=== PATIENT | male | born 1995 | race American Indian/Alaskan Native ===

== ENCOUNTER 2017-02-14 12:26 | Emergency (ER) | payer MEDICAID ==
[2017-02-14 12:36] VITALS: BP 122/81
--- NOTE | 2017-02-14 12:46 | EDM.PDOC ---
ED HPI GENERAL MEDICAL PROBLEM - General Chief Complaint: Respiratory Problem Stated Complaint: [phone] Time Seen by Provider: 02/14/17 12:35 Source of Information: Reports: Patient History Limitations: Reports: No Limitations - History of Present Illness INITIAL COMMENTS - FREE TEXT/NARRATIVE: This 21 yo male patient reports to the ED with his father due to a 5 day history of increased shortness of breath. The patient reports he has been using his nebulizer, but the treatment only helps for about 3 hours. The patient has not been seen by his primary care facility. The patient reports he has been coughing with the shortness of breath. Onset: Gradual Onset Date: 02/09/17 Duration: Constant, Getting Worse Location: Reports: Chest Quality: Reports: Ache, Dull Severity: Moderate Improves with: Reports: Medication (albuterol treatment) Worsens with: Reports: None Associated Symptoms: Reports: Cough, Shortness of Breath Treatments GROUN[employer]KEE[employer]TER: Reports: Breathing Treatments - Related Data Allergies Allergy/AdvReac Type Severity Reaction Status Date / Time No Known Allergies Allergy Verified 02/14/17 12:40 Home Meds: Home Meds Albuterol [Proventil Neb Soln] 2.5 mg NEB Q6HRRT 02/14/17 [History] ED ROS GENERAL - Review of Systems Review Of Systems: ROS reveals no pertinent complaints other than HPI. ED EXAM, GENERAL - Physical Exam Exam: See Below Exam Limited By: No Limitations General Appearance: Alert, WD/WN, Mild Distress, Thin Eye Exam: Bilateral Eye: EOMI, Normal Inspection, PERRL Ears: Normal External Exam, Normal Canal, Hearing Grossly Normal, Normal TMs Nose: Normal Inspection, Normal Mucosa, No Blood Throat/Mouth: Normal Inspection, Normal Lips, Normal Teeth, Normal Gums, Normal Oropharynx, Normal Voice, No Airway Compromise Head: Atraumatic, Normocephalic Neck: Normal Inspection, Supple, Non-Tender, Full Range of Motion Respiratory/Chest: No Respiratory Distress, Lungs Clear, Normal Breath Sounds, No Accessory Muscle Use, Chest Non-Tender Cardiovascular: Normal Peripheral Pulses, Regular Rate, Rhythm, No Edema, No Gallop, No JVD, No Murmur, No Rub GI/Abdominal: Normal Bowel Sounds, Soft, Non-Tender, No Organomegaly, No Distention, No Abnormal Bruit, No Mass (Male) Exam: Deferred Rectal (Males) Exam: Deferred Back Exam: Normal Inspection, Full Range of Motion, NT Extremities: Normal Inspection, Normal Range of Motion, Non-Tender, Normal Capillary Refill, No Pedal Edema Neurological: Alert, Oriented, CN II-XII Intact, Normal Cognition, Normal Gait, Normal Reflexes, No Motor/Sensory Deficits Psychiatric: Normal Affect, Normal Mood Skin Exam: Warm, Dry, Intact, Normal Color, No Rash Lymphatic: No Adenopathy Course - Vital Signs Last Recorded V/S: Last Vital Signs Temp 36.7 C 02/14/17 12:35 Pulse 67 02/14/17 12:35 Resp 20 02/14/17 12:35 BP 122/81 02/14/17 12:35 Pulse Ox 100 02/14/17 12:35 - Orders/Labs/Meds Orders: Active Orders 24 hr Category Date Time Status COMPREHENSIVE METABOLIC PN,CMP [CHEM] Urgent Lab 02/14/17 12:41 Ordered Labs: Laboratory Tests 02/14/17 Range/Units 12:50 WBC 6.3 (5.0-10.0) 10^3/uL RBC 5.41 (4.6-6.2) 10^6/uL Hgb 16.6 (14.0-18.0) g/dL Hct 48.8 (40.0-54.0) % MCV 90.2 (80-100) fL MCH 30.7 (27.0-34.0) pg MCHC 34.0 (33.0-35.0) g/dL Plt Count 238 (150-450) 10^3/uL Neut % (Auto) 50.5 (42.2-75.2) % Lymph % (Auto) 21.8 (20.5-50.1) % [place] % (Auto) 11.4 H (2-8) % Eos % (Auto) 16.0 H (1.0-3.0) % Baso % (Auto) 0.3 (0.0-1.0) % Meds: Medications Discontinued Medications Generic Name Dose Route Start Last Admin Trade Name Freq PRN Reason Stop Dose Admin Prednisone 40 mg 02/14/17 13:08 Prednisone PO 02/14/17 13:09 ONETIME ONE Departure - Departure Time of Disposition: 13:13 Disposition: Home, Self-Care 01 Condition: Fair Clinical Impression: Exacerbation of asthma - Discharge Information Instructions: Asthma, Adult Forms: ED Department Discharge Care Plan Goals: The patient was advised of the examination, lab and x-ray results during the visit. The patient was given an oral dose of Prednisone (40 mg) while in the ED. The patient was discharged with a script for Prednisone (20 mg) #8 to take 2 by mouth daily and Albuterol Nebulizer Solution (2.5/3) # 1 box to take 1 treatment 4 times per day. The patient should follow-up with his primary care facility next week for continued evaluation and management. If the patient has any additional symptoms or concerns, the patient should visit his primary care facility or return to the emergency department. - My Orders Last 24 Hours: My Active Orders 02/14/17 12:41 COMPREHENSIVE METABOLIC PN,CMP [CHEM] Urgent - Assessment/Plan Last 24 Hours: My Active Orders 02/14/17 12:41 COMPREHENSIVE METABOLIC PN,CMP [CHEM] Urgent
--- NOTE | 2017-02-14 13:07 | CR ---
Clinical history: 21-year-old male emergency department with shortness of breath. Interpretation: Abnormal. Bronchial "cuffing" and accentuation central lung markings with generalized air trapping typical nabeel ctive airway disease. Asthmatic? Normal cardiac silhouette and pulmonary vascularity. No alveolar edema or dependent effusion. No lung mass or hilar lymphadenopathy. No focal lobar pneumonia, atelectasis or collapse. No pneumothorax. CONCLUSION: Reactive airway disease.
[2017-02-14] MEDS ORDERED: predniSONE 20 MG Tab PO ONE (13:08)
[2017-02-14 13:16] LABS: CHLORIDE,CL 102 mmol/L (101-111); SODIUM,NA 140 mmol/L (135-145)
== END 2017-02-14 13:23 | disposition home or self-care (01) ==
LOC: DL.ED 12:26
DX: J45.901 Unspecified asthma with (acute) exacerbation (principal)
CPT/HCPCS: 36415; 71020; 80053; 85025; 99285; A9270

== ENCOUNTER 2018-09-26 21:16 | Emergency (ER) | payer MEDICAID ==
[2018-09-26 22:01] VITALS: BP 133/83
[2018-09-26] MEDS ORDERED: methylPREDNISolone Sodium Succinate 125 MG/2 ML SDV IM ONE (22:11)
--- NOTE | 2018-09-26 22:17 | EDM.PDOC ---
ED HPI GENERAL MEDICAL PROBLEM - General Chief Complaint: Skin Complaint Stated Complaint: SKIN COMPLAINT Time Seen by Provider: 09/26/18 22:00 Source of Information: Reports: Patient History Limitations: Reports: No Limitations - History of Present Illness INITIAL COMMENTS - FREE TEXT/NARRATIVE: This 23 yo male patient reports to the ED with eczema that has been getting worse over the past month. The patient reports he has been using creams, but only uses them every 2-3 days. The patient has not had an appointment with his clinic provider recently. The patient is interested in seeing a transport analyst. Duration: Week(s):, Constant, Getting Worse Location: Reports: Generalized Quality: Reports: Other Severity: Moderate Improves with: Reports: None Worsens with: Reports: None Associated Symptoms: Reports: No Other Symptoms - Related Data Allergies Allergy/AdvReac Type Severity Reaction Status Date / Time No Known Allergies Allergy Verified 06/18/18 17:52 Home Meds: Home Meds Albuterol [Proventil Neb Soln] 2.5 mg NEB Q6HRRT 02/14/17 [History] Fluocinonide 1 each TP BID #60 cream..g. 06/18/18 [Rx] Sulfamethoxazole/Trimethoprim [Sulfamethoxazole-Tmp Ds Tablet] 1 tab PO BID #14 tablet 06/18/18 [Rx] Past Medical History - Past Health History Medical/Surgical History: Denies Medical/Surgical History HEENT History: Reports: None Cardiovascular History: Reports: None Respiratory History: Reports: Asthma Gastrointestinal History: Reports: None Genitourinary History: Reports: None Musculoskeletal History: Reports: None Neurological History: Reports: None Psychiatric History: Reports: None Endocrine/Metabolic History: Reports: None Hematologic History: Reports: None Immunologic History: Reports: None Oncologic (Cancer) History: Reports: None Dermatologic History: Reports: Eczema Social & Family History - Family History Family Medical History: Noncontributory - Tobacco Use Smoking Status *Q: Never Smoker - Caffeine Use Caffeine Use: Reports: None - Recreational Drug Use Recreational Drug Use: No - Living Situation & Occupation Living situation: Reports: with Family Occupation: Disabled ED ROS GENERAL - Review of Systems Review Of Systems: ROS reveals no pertinent complaints other than HPI. ED EXAM, SKIN/RASH Exam: See Below Exam Limited By: No Limitations General Appearance: Alert, WD/WN, Mild Distress Eye Exam: Bilateral Eye: EOMI, Normal Inspection, PERRL Ears: Normal External Exam, Normal Canal, Hearing Grossly Normal, Normal TMs Nose: Normal Inspection, Normal Mucosa, No Blood Throat/Mouth: Normal Inspection, Normal Lips, Normal Teeth, Normal Gums, Normal Oropharynx, Normal Voice, No Airway Compromise Head: Atraumatic, Normocephalic Neck: Normal Inspection, Supple, Non-Tender, Full Range of Motion Respiratory/Chest: No Respiratory Distress, Lungs Clear, Normal Breath Sounds, No Accessory Muscle Use, Chest Non-Tender Cardiovascular: Normal Peripheral Pulses, Regular Rate, Rhythm, No Edema, No Gallop, No JVD, No Murmur, No Rub GI/Abdominal: Normal Bowel Sounds, Soft, Non-Tender, No Organomegaly, No Distention, No Abnormal Bruit, No Mass (Male) Exam: Deferred Rectal (Males) Exam: Deferred Back Exam: Normal Inspection, Full Range of Motion, NT Extremities: Normal Inspection, Normal Range of Motion, Non-Tender, No Pedal Edema, Normal Capillary Refill Neurological: Alert, Oriented, CN II-XII Intact, Normal Cognition, Normal Gait, Normal Reflexes, No Motor/Sensory Deficits Psychiatric: Normal Affect, Normal Mood Skin: Rash (diffuse ) Location, Skin: Head, Face, Neck, Chest, Back, Upper Extremity, Right, Upper Extremity, Left, Lower Extremity, Right, Lower Extremity, Left Characteristics: Erythematous Lymphatic: No Adenopathy Course - Vital Signs Last Recorded V/S: Last Vital Signs Temp 37.4 C 09/26/18 22:00 Pulse 84 09/26/18 22:00 Resp 16 09/26/18 22:00 BP 133/83 09/26/18 22:00 Pulse Ox 97 09/26/18 22:00 - Orders/Labs/Meds Orders: Active Orders 24 hr Category Date Time Status methylPREDNISolone Sod Succ [Solu-MEDROL] Med 09/26/18 22:11 Once 125 mg IM ONETIME ONE Departure - Departure Time of Disposition: 22:15 Disposition: Home, Self-Care 01 Condition: Fair Clinical Impression: Eczema Qualifiers: Eczema type: unspecified Qualified Code(s): L30.9 - Dermatitis, unspecified - Discharge Information *PRESCRIPTION DRUG MONITORING PROGRAM REVIEWED*: Not Applicable *COPY OF PRESCRIPTION DRUG MONITORING REPORT IN PATIENT CARLEE: Not Applicable Instructions: Atopic Dermatitis Care Plan Goals: The patient was advised of the examination results during the visit. The patient was given an injection of SoluMedrol while in the ED. The patient should be seen by his primary care facility for continued evaluation and management. If the patient has any additional symptoms or concerns, the patient should visit his primary care facility or return to the emergency department. - My Orders Last 24 Hours: My Active Orders 09/26/18 22:11 methylPREDNISolone Sod Succ [Solu-MEDROL] 125 mg IM ONETIME ONE - Assessment/Plan Last 24 Hours: My Active Orders 09/26/18 22:11 methylPREDNISolone Sod Succ [Solu-MEDROL] 125 mg IM ONETIME ONE
== END 2018-09-26 22:35 | disposition home or self-care (01) ==
LOC: DL.ED 21:16
DX: L30.9 Dermatitis, unspecified (principal)
CPT/HCPCS: 96372; 99282; J2930

== ENCOUNTER 2019-05-25 09:39 | Emergency (ER) | payer MEDICAID ==
[2019-05-25 09:50] VITALS: BP 128/87; PULSE 65
--- NOTE | 2019-05-25 09:57 | EDM.PDOC ---
ED HPI GENERAL MEDICAL PROBLEM - General Chief Complaint: Back Pain or Injury Stated Complaint: MIDDLE BACK IN PAIN Time Seen by Provider: 05/25/19 09:57 Source of Information: Reports: Patient, Old Records, RN, RN Notes Reviewed History Limitations: Reports: No Limitations - History of Present Illness INITIAL COMMENTS - FREE TEXT/NARRATIVE: Pt presents to ER from home by POV with c/o middle back pain without any specific injury, lifting, or any known cause. Pt states he simply woke up with the pain. He sleeps on an air mattress in his apartment. He has not changed his sleeping habits, or other physical activities recently. Pt denies fever, chills , N/V/D/C, or any urinary symptoms. He describes the pain as "muscle spasms" all through the middle back, worse on the right side. Onset: Today Duration: Constant Location: Reports: Back Quality: Reports: Other (Spasms) Severity: Moderate Improves with: Reports: None Worsens with: Reports: Movement Associated Symptoms: Reports: No Other Symptoms Middle Back Pain Score (Numeric/FACES): 4 - Related Data Allergies Allergy/AdvReac Type Severity Reaction Status Date / Time No Known Allergies Allergy Verified 05/25/19 09:50 Home Meds: Home Meds Albuterol [Proventil Neb Soln] 2.5 mg NEB Q6HRRT 02/14/17 [History] Fluocinonide 1 each TP BID #60 cream..g. 06/18/18 [Rx] Past Medical History - Past Health History Medical/Surgical History: Denies Medical/Surgical History HEENT History: Reports: Impaired Vision Other HEENT History: wears glasses Cardiovascular History: Reports: None Respiratory History: Reports: Asthma Gastrointestinal History: Reports: None Genitourinary History: Reports: None Musculoskeletal History: Reports: None Neurological History: Reports: None Psychiatric History: Reports: None Endocrine/Metabolic History: Reports: None Hematologic History: Reports: None Immunologic History: Reports: None Oncologic (Cancer) History: Reports: None Dermatologic History: Reports: Eczema - Past Surgical History Head Surgeries/Procedures: Reports: None Social & Family History - Family History Family Medical History: Noncontributory - Tobacco Use Smoking Status *Q: Never Smoker Second Hand Smoke Exposure: No - Caffeine Use Caffeine Use: Reports: Soda - Recreational Drug Use Recreational Drug Use: No - Living Situation & Occupation Living situation: Reports: with Family Occupation: Disabled ED ROS GENERAL - Review of Systems Review Of Systems: ROS reveals no pertinent complaints other than HPI. ED EXAM, UPPER BACK/NECK PAIN - Physical Exam Exam: See Below Exam Limited By: No Limitations General Appearance: Alert, WD/WN, No Apparent Distress Head Exam: Atraumatic, Normocephalic Neck Exam: Non-Tender, Full Range of Motion, Normal Alignment, Normal Inspection Cardiovascular/Respiratory: Regular Rate, Rhythm, Normal Breath Sounds, No Respiratory Distress GI/Abdominal: Normal Bowel Sounds, Soft, Non-Tender, No Organomegaly, No Distention, No Abnormal Bruit, No Mass Back Exam: Full Range of Motion, CVA Tenderness (R), Muscle Spasm, Paraspinal Tenderness (Rt>L). No: Vertebral Tenderness Extremities: Normal Inspection, Normal Range of Motion, Non-Tender, No Pedal Edema, Normal Capillary Refill Neurologic: sausage grinder II-XII nml As Tested, No Motor/Sensory Deficits, Alert, Normal Mood/Affect, Oriented x 3 Psychiatric: Normal Affect, Normal Mood Skin Exam: Warm/Dry, Other (Chronic appearing generalized dry skin with patches consistent with eczema (moderately severe)) Course - Vital Signs Last Recorded V/S: Last Vital Signs Temp 98.2 F 05/25/19 09:46 Pulse 65 05/25/19 09:46 Resp 16 05/25/19 09:46 BP 128/87 05/25/19 09:46 Pulse Ox 99 05/25/19 09:46 - Orders/Labs/Meds Labs: Laboratory Tests 05/25/19 Range/Units 09:58 Urine Color Yellow (YELLOW) Urine Appearance Clear (CLEAR) Urine pH 5.5 (5.0-9.0) Ur Specific [place] >= 1.030 (1.005-1.030) Urine Protein Negative (NEGATIVE) Urine Glucose (UA) Negative (NEGATIVE) Urine Ketones 15 H (NEGATIVE) Urine Occult Blood Negative (NEGATIVE) Urine Nitrite Negative (NEGATIVE) Urine Bilirubin Negative (NEGATIVE) Urine Urobilinogen 1.0 (0.2-1.0) mg/dL Ur Leukocyte Esterase Negative (NEGATIVE) Departure - Departure Time of Disposition: 10:19 Disposition: Home, Self-Care 01 Condition: Good Clinical Impression: Spasm of thoracic back muscle - Discharge Information *PRESCRIPTION DRUG MONITORING PROGRAM REVIEWED*: No *COPY OF PRESCRIPTION DRUG MONITORING REPORT IN PATIENT CARLEE: No Instructions: Muscle Cramps and Spasms, [id number], Heat Therapy, Easy-to- Read Forms: ED Department Discharge Additional Instructions: Rx: Ibuprofen 600mg *Take with food. Rx: Cyclobenzaprine 10mg *May cause drowsiness. Follow up in clinic if not improving in 2 to 3 days.
== END 2019-05-25 10:27 | disposition home or self-care (01) ==
LOC: DL.ED 09:39
DX: M62.830 Muscle spasm of back (principal)
CPT/HCPCS: 81003; 99283

== ENCOUNTER 2019-11-25 19:36 | Emergency (ER) | payer MEDICAID ==
[2019-11-25 19:56] VITALS: BP 123/85; PULSE 79
--- NOTE | 2019-11-25 20:10 | EDM.PDOC ---
ED HPI GENERAL MEDICAL PROBLEM - General Chief Complaint: Back Pain or Injury Stated Complaint: LOWER BACK Time Seen by Provider: 11/25/19 20:00 Source of Information: Reports: Patient, RN Notes Reviewed History Limitations: Reports: No Limitations - History of Present Illness INITIAL COMMENTS - FREE TEXT/NARRATIVE: ED with c/o chronic low back pain since may with spasm, Woke today with pain. Has not taken anything for discomfort, No ice or heat. rate 3/10 intermittent, worse wihen lying in bed. No injury. No change in activity. No problems with urination. Middle Back Pain Score (Numeric/FACES): 3 - Related Data Allergies Allergy/AdvReac Type Severity Reaction Status Date / Time No Known Allergies Allergy Verified 05/25/19 09:50 Home Meds: Home Meds Albuterol [Proventil Neb Soln] 2.5 mg NEB Q6HRRT 02/14/17 [History] Fluocinonide 1 each TP BID #60 cream..g. 06/18/18 [Rx] Past Medical History - Past Health History Medical/Surgical History: Denies Medical/Surgical History HEENT History: Reports: Impaired Vision Other HEENT History: wears glasses Cardiovascular History: Reports: None Respiratory History: Reports: Asthma Gastrointestinal History: Reports: None Genitourinary History: Reports: None Musculoskeletal History: Reports: Back Pain, Chronic Neurological History: Reports: None Psychiatric History: Reports: None Endocrine/Metabolic History: Reports: None Hematologic History: Reports: None Immunologic History: Reports: None Oncologic (Cancer) History: Reports: None Dermatologic History: Reports: Eczema - Past Surgical History Head Surgeries/Procedures: Reports: None Social & Family History - Family History Family Medical History: Noncontributory - Tobacco Use Smoking Status *Q: Unknown Ever Smoked - Caffeine Use Caffeine Use: Reports: Soda - Recreational Drug Use Recreational Drug Use: No - Living Situation & Occupation Living situation: Reports: with Family Occupation: Disabled ED ROS GENERAL - Review of Systems Review Of Systems: Comprehensive ROS is negative, except as noted in HPI. ED EXAM,LOWER BACK PAIN/INJURY - Physical Exam Exam: See Below Exam Limited By: No Limitations General Appearance: Alert, No Apparent Distress Eye Exam: Bilateral Eye: EOMI Ears: Normal External Exam Throat/Mouth: Normal Inspection Head: Atraumatic, Normocephalic Neck: Normal Inspection Respiratory/Chest: No Respiratory Distress, Lungs Clear, Normal Breath Sounds Cardiovascular: Normal Peripheral Pulses, Regular Rate, Rhythm GI/Abdominal: Soft Back Exam: Full Range of Motion. No: Muscle Spasm, Paraspinal Tenderness, Vertebral Tenderness Extremities: Normal Inspection, Normal Range of Motion Neurological: Alert, Normal Gait, Oriented x 3 Psychiatric: Anxious Skin Exam: Warm, Dry, Intact Course - Vital Signs Last Recorded V/S: Last Vital Signs Temp 99.0 F 11/25/19 19:52 Pulse 79 11/25/19 19:52 Resp 16 11/25/19 19:52 BP 123/85 11/25/19 19:52 Pulse Ox 96 11/25/19 19:52 - Orders/Labs/Meds Orders: Active Orders 24 hr Category Date Time Status DRUG SCREEN URINE BIORAD [URCHEM] Stat Lab 11/25/19 19:56 Received UA RFX MINNIE AND CULT IF INDIC [URIN] Urgent Lab 11/25/19 19:56 Received Departure - Departure Time of Disposition: 20:15 Disposition: Home, Self-Care 01 Clinical Impression: Muscle spasm of back - Discharge Information *PRESCRIPTION DRUG MONITORING PROGRAM REVIEWED*: No *COPY OF PRESCRIPTION DRUG MONITORING REPORT IN PATIENT CARLEE: No Instructions: Muscle Cramps and Spasms, [id number] Additional Instructions: alternate tylenol 650mg and ibuprofen 600mg every 4 hours as needed for discomfort warm pack to back as needed follow up in clinic on Friday if still symptoms Sepsis Event Note - Evaluation Sepsis Screening Result: No Definite Risk - Focused Exam Vital Signs: Vital Signs Temp Pulse Resp BP Pulse Ox 11/25/19 19:52 99.0 F 79 16 123/85 96 Date Exam was Performed: 11/25/19 Time Exam was Performed: 20:03 - My Orders Last 24 Hours: My Active Orders 11/25/19 19:56 DRUG SCREEN URINE BIORAD [URCHEM] Stat UA RFX MINNIE AND CULT IF INDIC [URIN] Urgent - Assessment/Plan Last 24 Hours: My Active Orders 11/25/19 19:56 DRUG SCREEN URINE BIORAD [URCHEM] Stat UA RFX MINNIE AND CULT IF INDIC [URIN] Urgent
== END 2019-11-25 20:17 | disposition home or self-care (01) ==
LOC: DL.ED 19:36
DX: M62.830 Muscle spasm of back (principal)
CPT/HCPCS: 80305-QW; 81001; 99283

== ENCOUNTER 2020-01-20 16:37 | Emergency (ER) | payer MEDICAID | END 2020-01-20 18:37 | LOC: DL.ED 16:37 | DX: Z53.21 Procedure and treatment not carried out due to patient leaving prior to being seen by health care provider (principal) ==

== ENCOUNTER 2020-01-23 17:55 | Emergency (ER) | payer MEDICAID ==
--- NOTE | 2020-01-23 18:01 | EDM.PDOC ---
ED HPI GENERAL MEDICAL PROBLEM - General Chief Complaint: ENT Problem Stated Complaint: RIGHT EAR TROUBLE, PLUGGED UP Time Seen by Provider: 01/23/20 18:01 Source of Information: Reports: Patient, Old Records, RN, RN Notes Reviewed History Limitations: Reports: No Limitations - History of Present Illness INITIAL COMMENTS - FREE TEXT/NARRATIVE: Pt to ER stating he is having trouble with right ear with muffled hearing and a plugged sensation. Has been having trouble with this ear for several months. States that he has seen a provider for it, but is unable to say which provider, when and what they diagnosed him with or what treatments they tried. There does appear to be some dry skin around the external ear canal, which is consistent with the patient's stated history of eczema. He is unable to articulate whether or not there has been drainage, but states that there is no pain. Onset: Gradual Duration: Chronic, Constant Location: Reports: Other (ear) Quality: Reports: Pressure, Other (Denies pain) Severity: Moderate Improves with: Reports: None Worsens with: Reports: None Associated Symptoms: Reports: No Other Symptoms - Related Data Allergies Allergy/AdvReac Type Severity Reaction Status Date / Time No Known Allergies Allergy Verified 01/23/20 18:04 Home Meds: Home Meds Albuterol [Proventil Neb Soln] 2.5 mg NEB Q6HRRT PRN 02/14/17 [History] Fluocinonide 1 each TP BID PRN 01/20/20 [History] Past Medical History - Past Health History Medical/Surgical History: Denies Medical/Surgical History HEENT History: Reports: Impaired Vision, Other (See Below) (Cerumen impaction) Other HEENT History: wears glasses Cardiovascular History: Reports: None Respiratory History: Reports: Asthma Gastrointestinal History: Reports: None Genitourinary History: Reports: None Musculoskeletal History: Reports: Back Pain, Chronic Neurological History: Reports: None Psychiatric History: Reports: None Endocrine/Metabolic History: Reports: None Hematologic History: Reports: None Immunologic History: Reports: None Oncologic (Cancer) History: Reports: None Dermatologic History: Reports: Eczema - Infectious Disease History Infectious Disease History: Reports: None - Past Surgical History Head Surgeries/Procedures: Reports: None Social & Family History - Family History Family Medical History: Noncontributory - Caffeine Use Caffeine Use: Reports: Soda - Living Situation & Occupation Living situation: Reports: with Family Occupation: Disabled ED ROS ENT - Review of Systems Review Of Systems: Comprehensive ROS is negative, except as noted in HPI. ED EXAM, ENT - Physical Exam Exam: See Below Exam Limited By: No Limitations General Appearance: Alert, WD/WN, No Apparent Distress Eye Exam: Bilateral Eye: Normal Inspection Ears: TM Obscured by Cerumen (Right), Cerumen Impaction (Right), Other (Left TM normal) Nose: Normal Inspection, Normal Mucousa, No Blood Mouth/Throat: Normal Inspection, Normal Oropharynx Head: Atraumatic, Normocephalic Neck: Normal Inspection, Supple, Non-Tender, Full Range of Motion. No: Lymphadenopathy (L), Lymphadenopathy (R) Neurological: Alert, Oriented, CN II-XII Intact, Normal Gait, No Motor/Sensory Deficits Psychiatric: Normal Mood Skin: Warm, Dry, Intact, Rash (chronic eczema) Course - Vital Signs Last Recorded V/S: Last Vital Signs Temp 98.2 F 01/23/20 18:05 Pulse 84 01/23/20 18:05 Resp 16 01/23/20 18:05 BP 127/89 01/23/20 18:05 Pulse Ox 97 01/23/20 18:05 - Orders/Labs/Meds Orders: Active Orders 24 hr Category Date Time Status Ear Irrigation [RC] ASDIRECTED Care 01/23/20 18:15 Ordered Departure - Departure Time of Disposition: 18:25 Disposition: Home, Self-Care 01 Condition: Good Clinical Impression: Impacted cerumen, right ear - Discharge Information *PRESCRIPTION DRUG MONITORING PROGRAM REVIEWED*: Not Applicable *COPY OF PRESCRIPTION DRUG MONITORING REPORT IN PATIENT CARLEE: Not Applicable Instructions: Earwax Buildup, Adult Forms: ED Department Discharge Additional Instructions: Do not use Q-tips in your ears. Follow up in clinic in 3 to 4 weeks for ear recheck. Sepsis Event Note - Focused Exam Vital Signs: Vital Signs Temp Pulse Resp BP Pulse Ox 01/23/20 18:05 98.2 F 84 16 127/89 97 Date Exam was Performed: 01/23/20 Time Exam was Performed: 18:16 - My Orders Last 24 Hours: My Active Orders 01/23/20 18:15 Ear Irrigation [RC] ASDIRECTED - Assessment/Plan Last 24 Hours: My Active Orders 01/23/20 18:15 Ear Irrigation [RC] ASDIRECTED
[2020-01-23 18:08] VITALS: BP 127/89; PULSE 84
== END 2020-01-23 18:36 | disposition home or self-care (01) ==
LOC: DL.ED 17:55
DX: H61.21 Impacted cerumen, right ear (principal); L30.9 Dermatitis, unspecified; J45.909 Unspecified asthma, uncomplicated
CPT/HCPCS: 99282

== ENCOUNTER 2020-04-11 06:59 | Emergency (ER) | payer MEDICAID ==
[2020-04-11] MEDS ORDERED: Ibuprofen 600 MG Tab PO ONE (07:13)
[2020-04-11 07:14] VITALS: BP 116/77; PULSE 57
--- NOTE | 2020-04-11 07:20 | EDM.PDOC ---
ED HPI GENERAL MEDICAL PROBLEM - General Chief Complaint: Back Pain or Injury Stated Complaint: [id number] BACK PAIN Time Seen by Provider: 04/11/20 07:10 Source of Information: Reports: Patient History Limitations: Reports: No Limitations - History of Present Illness INITIAL COMMENTS - FREE TEXT/NARRATIVE: This 25 yo male patient reports to the ED with back pain. The patient reports his back pain has been intermittent for the past 4 months. The patient reports increased pain over the past 2 days. The patient reports the took Tylenol yesterday and may have taken ibuprofen as well. The patient was seen here with similar symptoms in November, advised to take Tylenol and ibuprofen and follow-up with his primary care facility. The patient reports he has not seen his primary care facility for follow-up. The patient denies any urinary problems or pain shooting down to his legs. The patient denies any recent trauma or lifting/moving heavy objects. 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, NSAIDS Lower Back Pain Score (Numeric/FACES): 5 - Related Data Allergies Allergy/AdvReac Type Severity Reaction Status Date / Time No Known Allergies Allergy Verified 01/23/20 18:04 Past Medical History - Past Health History Medical/Surgical History: Denies Medical/Surgical History HEENT History: Reports: Impaired Vision, Other (See Below) (Cerumen impaction) Other HEENT History: wears glasses Cardiovascular History: Reports: None Respiratory History: Reports: Asthma Gastrointestinal History: Reports: None Genitourinary History: Reports: None Musculoskeletal History: Reports: Back Pain, Chronic Neurological History: Reports: None Psychiatric History: Reports: None Endocrine/Metabolic History: Reports: None Hematologic History: Reports: None Immunologic History: Reports: None Oncologic (Cancer) History: Reports: None Dermatologic History: Reports: Eczema - Infectious Disease History Infectious Disease History: Reports: None - Past Surgical History Head Surgeries/Procedures: Reports: None Social & Family History - Family History Family Medical History: Noncontributory - Caffeine Use Caffeine Use: Reports: Soda - Living Situation & Occupation Living situation: Reports: with Family Occupation: Disabled ED ROS GENERAL - Review of Systems Review Of Systems: Comprehensive ROS is negative, except as noted in HPI. ED EXAM,LOWER BACK PAIN/INJURY - Physical Exam Exam: See Below Exam Limited By: No Limitations General Appearance: Alert, WD/WN, Mild Distress Eye Exam: Bilateral Eye: EOMI, Normal Inspection, PERRL Ears: Normal External Exam, Normal Canal, Hearing Grossly Normal, Normal TMs Nose: Normal Inspection, Normal Mucosa, No Blood Throat/Mouth: Normal Inspection, Normal Lips, Normal Teeth, Normal Gums, Normal Oropharynx, Normal Voice, No Airway Compromise Head: Atraumatic, Normocephalic Neck: Normal Inspection, Supple, Non-Tender, Full Range of Motion Respiratory/Chest: No Respiratory Distress, Lungs Clear, Normal Breath Sounds, No Accessory Muscle Use, Chest Non-Tender Cardiovascular: Normal Peripheral Pulses, Regular Rate, Rhythm, No Edema, No Gallop, No JVD, No Murmur, No Rub GI/Abdominal: Normal Bowel Sounds, Soft, Non-Tender, No Organomegaly, No Dist ention, No Abnormal Bruit, No Mass (Male) Exam: Deferred Rectal (Males) Exam: Deferred Back Exam: Paraspinal Tenderness Extremities: Normal Inspection, Normal Range of Motion, Non-Tender, No Pedal Edema, Normal Capillary Refill Neurological: Alert, Normal Mood/Affect, Normal Dorsiflexion, CN II-XII Intact, Normal Plantar Flexion, Normal Gait, Normal Reflexes, No Motor/Sensory Deficits, Oriented x 3 Psychiatric: Normal Affect, Normal Mood Skin Exam: Warm, Dry, Intact, Normal Color, No Rash Lymphatic: No Adenopathy Course - Vital Signs Last Recorded V/S: Last Vital Signs Temp 36.7 C 04/11/20 07:10 Pulse 57 L 04/11/20 07:10 Resp 18 04/11/20 07:10 BP 116/77 04/11/20 07:10 Pulse Ox 99 04/11/20 07:10 - Orders/Labs/Meds Orders: Active Orders 24 hr Category Date Time Status Ibuprofen [Motrin] Med 04/11/20 07:13 Once 600 mg PO ONETIME ONE Orphenadrine [Norflex] Med 04/11/20 07:13 Once 60 mg IM ONETIME ONE Medication Orders Ibuprofen (Motrin) 600 mg PO ONETIME ONE Stop: 04/11/20 07:14 Orphenadrine Citrate (Norflex) 60 mg IM ONETIME ONE Stop: 04/11/20 07:14 Meds: Medications Generic Name Dose Route Start Last Admin Trade Name Sara PRN Reason Stop Dose Admin Ibuprofen 600 mg 04/11/20 07:13 Motrin PO 04/11/20 07:14 ONETIME ONE Orphenadrine Citrate 60 mg 04/11/20 07:13 Norflex IM 04/11/20 07:14 ONETIME ONE Departure - Departure Time of Disposition: 07:20 Disposition: Home, Self-Care 01 Condition: Fair Clinical Impression: Muscle spasm of back - Discharge Information *PRESCRIPTION DRUG MONITORING PROGRAM REVIEWED*: Not Applicable *COPY OF PRESCRIPTION DRUG MONITORING REPORT IN PATIENT CARLEE: Not Applicable Instructions: Chronic Back Pain, [id number], Muscle Cramps and Spasms, [id number] Care Plan Goals: The patient was advised of the examination results during the visit. The patient was given an oral dose of ibuprofen and an injection of Norflex while in the ED. The patient was discharged with a script for Flexeril (5 mg) #20 to take 1 by mouth every 6 hours as needed for muscle spasms. The patient was encouraged to take Tylenol and ibuprofen as directed. The patient should follow-up with his primary care facility for continued care and further management. If the patient has any additional symptoms or concerns, the patient should either return to the emergency department or visit his primary care facility. Sepsis Event Note (ED) - Evaluation Sepsis Screening Result: No Definite Risk - Focused Exam Vital Signs: Vital Signs Temp Pulse Resp BP Pulse Ox 04/11/20 07:10 36.7 C 57 L 18 116/77 99 - My Orders Last 24 Hours: My Active Orders 04/11/20 07:13 Ibuprofen [Motrin] 600 mg PO ONETIME ONE Orphenadrine [Norflex] 60 mg IM ONETIME ONE - Assessment/Plan Last 24 Hours: My Active Orders 04/11/20 07:13 Ibuprofen [Motrin] 600 mg PO ONETIME ONE Orphenadrine [Norflex] 60 mg IM ONETIME ONE
== END 2020-04-11 07:40 | disposition home or self-care (01) ==
LOC: DL.ED 06:59
DX: M62.830 Muscle spasm of back (principal); J45.909 Unspecified asthma, uncomplicated
CPT/HCPCS: 96372; 99283; A9270; J2360

== ENCOUNTER 2021-03-12 22:18 | Emergency (ER) | payer MEDICAID | END 2021-03-13 02:37 | disposition left against medical advice (07) | LOC: DL.ED 22:18 | DX: J45.909 Unspecified asthma, uncomplicated (principal); Z53.21 Procedure and treatment not carried out due to patient leaving prior to being seen by health care provider ==

== ENCOUNTER 2021-03-13 07:16 | Emergency (ER) | payer MEDICAID ==
[2021-03-13 07:32] VITALS: BP 121/88; PULSE 107
[2021-03-13] MEDS ORDERED: methylPREDNISolone Sodium Succinate 125 MG/2 ML SDV IVPUSH ONE (07:42)
[2021-03-13] MEDS ORDERED: Albuterol/Ipratropium 3.0-0.5 MG/3 ML Neb Soln NEB ONE (07:42)
--- NOTE | 2021-03-13 07:45 | EDM.PDOC ---
ED HPI GENERAL MEDICAL PROBLEM - General Chief Complaint: Respiratory Problem Stated Complaint: TROUBLE BREATHING [id number] Time Seen by Provider: 03/13/21 07:42 Source of Information: Reports: Patient, RN, RN Notes Reviewed History Limitations: Reports: No Limitations - History of Present Illness INITIAL COMMENTS - FREE TEXT/NARRATIVE: Cesar is a 26 y/o male with a history of asthma who presents to the ED via personal vehicle with complaints of shortness of breath. The patient reports his symptoms began approximately one week ago and have progressively worsened in that time. He has not taken his previously prescribed inhalers as he has not been able to find them. He denies fever, shaking chills, vision changes, chest pain, palpitations, nausea, vomiting, or diarrhea. He denies tobacco, alcohol, or recreational drugs. - Related Data Allergies Allergy/AdvReac Type Severity Reaction Status Date / Time No Known Allergies Allergy Verified 03/13/21 07:32 Past Medical History - Past Health History Medical/Surgical History: Denies Medical/Surgical History HEENT History: Reports: Impaired Vision, Other (See Below) Other HEENT History: wears glasses Cardiovascular History: Reports: None Respiratory History: Reports: Asthma Gastrointestinal History: Reports: None Genitourinary History: Reports: None Musculoskeletal History: Reports: Back Pain, Chronic Neurological History: Reports: None Psychiatric History: Reports: None Endocrine/Metabolic History: Reports: None Hematologic History: Reports: None Immunologic History: Reports: None Oncologic (Cancer) History: Reports: None Dermatologic History: Reports: Eczema - Infectious Disease History Infectious Disease History: Reports: None - Past Surgical History Head Surgeries/Procedures: Reports: None Social & Family History - Family History Family Medical History: No Pertinent Family History - Tobacco Use Tobacco Use Status *Q: Current Status Unknown - Caffeine Use Caffeine Use: Reports: Soda - Recreational Drug Use Recreational Drug Use: No - Living Situation & Occupation Living situation: Reports: with Family Occupation: Disabled ED ROS GENERAL - Review of Systems Review Of Systems: Comprehensive ROS is negative, except as noted in HPI. ED EXAM, GENERAL - Physical Exam Exam: See Below Exam Limited By: Uncooperative General Appearance: Alert, No Apparent Distress Eye Exam: Bilateral Eye: EOMI, PERRL (4mm), Other (Scleral icterus) Ears: Normal Canal, Hearing Grossly Normal. No: Normal External Exam (Eczema patches to right auricle) Ear Exam: Right Ear: Auricle Normal (Eczema patches to right auricle), Bilateral Ear: Canal Normal Nose: Normal Inspection, Normal Mucosa, No Blood Throat/Mouth: Other (Patient refuses to allow director underwriter sales to examine mouth and throat as he "...hasn't brushed his teeth") Head: Atraumatic, Normocephalic Neck: Normal Inspection, Supple, Non-Tender, Full Range of Motion. No: Lymphadenopathy (L), Lymphadenopathy (R) Respiratory/Chest: No Respiratory Distress, No Accessory Muscle Use, Chest Non-Tender, Wheezing (Inspiratory and expiratory), Prolonged Expiration Cardiovascular: Normal Peripheral Pulses, Regular Rate, Rhythm, No Edema, No Gallop, No JVD, No Murmur, No Rub, Tachycardia Peripheral Pulses: 2+: Radial (L), Radial (R) GI/Abdominal: Normal Bowel Sounds, Soft, Non-Tender, No Distention, No Abnormal Bruit, No Mass, Pelvis Stable (Male) Exam: Deferred Rectal (Males) Exam: Deferred Back Exam: Normal Inspection, Full Range of Motion Extremities: Normal Inspection, Normal Range of Motion, Non-Tender, Normal Capillary Refill, No Pedal Edema Neurological: Alert, Oriented, Normal Gait, No Motor/Sensory Deficits, Slow to Respond Psychiatric: Anxious Skin Exam: Warm, Dry, Intact, Normal Color, No Rash. No: Cyanosis, Jaundice, Mottled, Pallor Course - Vital Signs Last Recorded V/S: Last Vital Signs Temp 98.9 F 03/13/21 07:29 Pulse 107 H 03/13/21 07:29 Resp 14 03/13/21 07:29 BP 121/88 03/13/21 07:29 Pulse Ox 96 03/13/21 07:29 - Orders/Labs/Meds Labs: Laboratory Tests 03/13/21 03/13/21 03/13/21 Range/Units 07:44 07:44 07:56 WBC 14.2 H (5.0-10.0) 10^3/uL RBC 5.55 (4.6-6.2) 10^6/uL Hgb 16.4 (14.0-18.0) g/dL Hct 49.6 (40.0-54.0) % MCV 89.4 (80-100) fL MCH 29.5 (27.0-34.0) pg MCHC 33.1 (33.0-35.0) g/dL Plt Count 399 D (150-450) 10^3/uL Neut % (Auto) 71.2 (42.2-75.2) % Lymph % (Auto) 9.7 L (20.5-50.1) % Robertson % (Auto) 7.8 (2-8) % Eos % (Auto) 11.2 H (1.0-3.0) % Baso % (Auto) 0.1 (0.0-1.0) % Sodium (136-145) mmol/L Potassium (3.5-5.1) mmol/L Chloride (98-107) mmol/L Carbon Dioxide (21-32) mmol/L Anion Gap (7-13) mEq/L BUN (7-18) mg/dL Creatinine (0.70-1.30) mg/dL Est Cr Clr Drug Dosing mL/min Estimated GFR (MDRD) BUN/Creatinine Ratio (No establ ref range) Glucose (70-99) mg/dL Calcium (8.5-10.1) mg/dL Total Bilirubin (0.2-1.0) mg/dL AST (15-37) U/L ALT (16-63) U/L Alkaline Phosphatase (46-116) U/L Troponin I High Sens (<=76) pg/mL C-Reactive Protein (0.0-0.9) mg/dL Total Protein (6.4-8.2) g/dL Albumin (3.4-5.0) g/dL Globulin Albumin/Globulin Ratio Urine Color Yellow (YELLOW) Urine Appearance Clear (CLEAR) Urine pH 5.5 (5.0-9.0) Ur Specific Prather >= 1.030 (1.005-1.030) Urine Protein Negative (NEGATIVE) Urine Glucose (UA) Negative (NEGATIVE) Urine Ketones Negative (NEGATIVE) Urine Occult Blood Trace-intact H (NEGATIVE) Urine Nitrite Negative (NEGATIVE) Urine Bilirubin Negative (NEGATIVE) Urine Urobilinogen 0.2 (0.2-1.0) mg/dL Ur Leukocyte Esterase Negative (NEGATIVE) Urine RBC 0-5 /HPF Urine WBC 0-5 (0-5/HPF) /HPF Ur Epithelial Cells Rare (NOT SEEN) /HPF Urine Bacteria Rare (0-FEW/HPF) /HPF Urine Mucus Many H (NOT SEEN) /LPF Urine Opiates Screen Negative (NEGATIVE) Ur Oxycodone Screen Negative (NEGATIVE) Urine Methadone Screen Negative (NEGATIVE) Ur Barbiturates Screen Negative (NEGATIVE) U Tricyclic Antidepress Negative (NEGATIVE) Ur Phencyclidine Scrn Negative (NEGATIVE) Ur Amphetamine Screen Negative (NEGATIVE) U Methamphetamines Scrn Negative (NEGATIVE) Urine MDMA Screen Negative (NEGATIVE) U Benzodiazepines Scrn Negative (NEGATIVE) Urine Cocaine Screen Negative (NEGATIVE) U Marijuana (THC) Screen Negative (NEGATIVE) Ethyl Alcohol (0) mg/dL 03/13/21 Range/Units 07:56 WBC (5.0-10.0) 10^3/uL RBC (4.6-6.2) 10^6/uL Hgb (14.0-18.0) g/dL Hct (40.0-54.0) % MCV (80-100) fL MCH (27.0-34.0) pg MCHC (33.0-35.0) g/dL Plt Count (150-450) 10^3/uL Neut % (Auto) (42.2-75.2) % Lymph % (Auto) (20.5-50.1) % Robertson % (Auto) (2-8) % Eos % (Auto) (1.0-3.0) % Baso % (Auto) (0.0-1.0) % Sodium 146 H (136-145) mmol/L Potassium 3.8 (3.5-5.1) mmol/L Chloride 106 (98-107) mmol/L Carbon Dioxide 28 (21-32) mmol/L Anion Gap 15.8 H (7-13) mEq/L BUN 12 (7-18) mg/dL Creatinine 0.85 (0.70-1.30) mg/dL Est Cr Clr Drug Dosing 108.34 mL/min Estimated GFR (MDRD) > 60 BUN/Creatinine Ratio 14.1 (No establ ref range) Glucose 106 H (70-99) mg/dL Calcium 8.5 (8.5-10.1) mg/dL Total Bilirubin 1.2 H (0.2-1.0) mg/dL AST 17 (15-37) U/L ALT 19 (16-63) U/L Alkaline Phosphatase 103 (46-116) U/L Troponin I High Sens < 4 (<=76) pg/mL C-Reactive Protein 0.8 (0.0-0.9) mg/dL Total Protein 8.2 (6.4-8.2) g/dL Albumin 3.9 (3.4-5.0) g/dL Globulin 4.3 Albumin/Globulin Ratio 0.9 Urine Color (YELLOW) Urine Appearance (CLEAR) Urine pH (5.0-9.0) Ur Specific Prather (1.005-1.030) Urine Protein (NEGATIVE) Urine Glucose (UA) (NEGATIVE) Urine Ketones (NEGATIVE) Urine Occult Blood (NEGATIVE) Urine Nitrite (NEGATIVE) Urine Bilirubin (NEGATIVE) Urine Urobilinogen (0.2-1.0) mg/dL Ur Leukocyte Esterase (NEGATIVE) Urine RBC /HPF Urine WBC (0-5/HPF) /HPF Ur Epithelial Cells (NOT SEEN) /HPF Urine Bacteria (0-FEW/HPF) /HPF Urine Mucus (NOT SEEN) /LPF Urine Opiates Screen (NEGATIVE) Ur Oxycodone Screen (NEGATIVE) Urine Methadone Screen (NEGATIVE) Ur Barbiturates Screen (NEGATIVE) U Tricyclic Antidepress (NEGATIVE) Ur Phencyclidine Scrn (NEGATIVE) Ur Amphetamine Screen (NEGATIVE) U Methamphetamines Scrn (NEGATIVE) Urine MDMA Screen (NEGATIVE) U Benzodiazepines Scrn (NEGATIVE) Urine Cocaine Screen (NEGATIVE) U Marijuana (THC) Screen (NEGATIVE) Ethyl Alcohol < 3 (0) mg/dL Meds: Medications Discontinued Medications Generic Name Dose Route Start Last Admin Trade Name Freq PRN Reason Stop Dose Admin Albuterol/Ipratropium 3 ml 03/13/21 07:42 03/13/21 08:18 Albuterol/Ipratropium 3.0-0.5 Mg/3 Ml Neb Soln NEB 03/13/21 07:43 3 ml ONETIME ONE Administration Methylprednisolone Sodium Succinate 125 mg 03/13/21 07:42 03/13/21 09:05 Methylprednisolone Sodium Succinate 125 Mg/2 Ml Sdv IVPUSH 03/13/21 07:43 Not Given ONETIME ONE Methylprednisolone Sodium Succinate 125 mg 03/13/21 07:56 03/13/21 09:05 Methylprednisolone Sodium Succinate 125 Mg/2 Ml Sdv IM 03/13/21 07:57 125 mg ONETIME ONE Administration - Radiology Interpretation Free Text/Narrative:: [facility] [place] [facility] Final Radiology Report Call: [phone] assistance Online chat: [email or web address] Name: CESAR ROSARIO Age: 26Years M Date: 03/13/2021 SSN: -- : [id number] Study: CR CHEST 1V FRONTAL Requesting Physician: Shannan Junior Images: 1 Addl Studies: Provided Clinical History: Shortness of breath; Hx of asthma Contrast: Contrast Medium: Contrast Amount: Contrast Method: CONFIDENTIALITY STATEMENT This report is intended only for use by the referring physician, and only in accordance with law. If you received this in error, call [phone]. Page 1 of 1 PROCEDURE INFORMATION: Exam: XR Chest Exam date and time: 03/13/2021 8:26 AM Age: 26 years old Clinical indication: Shortness of breath; Additional info: Shortness of breath; HX of asthma TECHNIQUE: Imaging protocol: XR of the chest. Views: 1 view. COMPARISON: CR Chest 2V 02/14/2017 12:52 PM FINDINGS: Lungs: There is minor scattered streaky atelectasis. The lungs are otherwise clear. Pleural spaces: Unremarkable. No pleural effusion. No pneumothorax. Heart/Mediastinum: The cardiomediastinal silhouette is fairly stable in appearance. Bones/joints: Unremarkable. IMPRESSION: No evidence for acute pulmonary disease. Thank you for allowing us to participate in the care of your patient. Dictated and Authenticated by: Solo Hill MD 03/13/2021 10:27 AM Central Time ([place] & [place]) - Re-Assessments/Exams Free Text/Narrative Re-Assessment/Exam: 03/13/21 Findings of examination, lab work, and imaging reviewed with patient. Will treat asthma exacerbation with pulmonary steroid burst and albuterol MDI. Discussed supportive cares for asthma. Patient instructed to follow up with primary care provider in 2-3 days. Red flag signs and symptoms which would warrant reevaluation reviewed. Patient verbalized understanding and agreement with the plan of care. Departure - Departure Time of Disposition: 10:41 Disposition: Home, Self-Care 01 Condition: Good Clinical Impression: Acute asthma - Discharge Information *PRESCRIPTION DRUG MONITORING PROGRAM REVIEWED*: Not Applicable *COPY OF PRESCRIPTION DRUG MONITORING REPORT IN PATIENT CARLEE: Not Applicable Instructions: Asthma Attack Prevention, Adult Forms: ED Department Discharge Additional Instructions: Rx: prednisone Rx: albuterol MDI 1.) Follow up with your primary care provider in 2-3 days regarding today's visit. 2.) Return to the emergency department should you require more frequent doses of albuterol than has been prescribed. 3.) Follow up with primary care provider, or return to the emergency department, with fever, shaking chills, chest pain, palpitations, or persistent shortness of breath. Sepsis Event Note (ED) - Evaluation Sepsis Screening Result: No Definite Risk
[2021-03-13] MEDS ORDERED: methylPREDNISolone Sodium Succinate 125 MG/2 ML SDV IM ONE (07:56)
[2021-03-13 08:12] LABS: AMPHETAMINES,URINE NEGATIVE (NEGATIVE); BARBITURATES,URINE NEGATIVE (NEGATIVE); BENZODIAZEPINE,URINE NEGATIVE (NEGATIVE); MDMA (ECSTASY), URINE NEGATIVE (NEGATIVE); METHADONE,URINE NEGATIVE (NEGATIVE); METHAMPHETAMINES,URINE NEGATIVE (NEGATIVE); OXYCODONE,URINE NEGATIVE (NEGATIVE); PHENCYCLIDINE,URINE NEGATIVE (NEGATIVE); TCA,URINE NEGATIVE (NEGATIVE)
[2021-03-13 08:13] LABS: OPIATES,URINE NEGATIVE (NEGATIVE)
[2021-03-13 08:27] LABS: ANION GAP 15.8 mEq/L (7-13); CHLORIDE,CL 106 mmol/L (98-107); SODIUM,NA 146 mmol/L (136-145)
--- NOTE | 2021-03-13 10:28 | CR ---
PROCEDURE INFORMATION: Exam: XR Chest Exam date and time: 03/13/2021 8:26 AM Age: 26 years old Clinical indication: Shortness of breath; Additional info: Shortness of breath; HX of asthma TECHNIQUE: Imaging protocol: XR of the chest. Views: 1 view. COMPARISON: CR Chest 2V 02/14/2017 12:52 PM FINDINGS: Lungs: There is minor scattered streaky atelectasis. The lungs are otherwise clear. Pleural spaces: Unremarkable. No pleural effusion. No pneumothorax. Heart/Mediastinum: The cardiomediastinal silhouette is fairly stable in appearance. Bones/joints: Unremarkable. IMPRESSION: No evidence for acute pulmonary disease.
== END 2021-03-13 10:58 | disposition home or self-care (01) ==
LOC: DL.ED 07:16
DX: J45.909 Unspecified asthma, uncomplicated (principal)
CPT/HCPCS: 36415; 71045; 80053; 80305; 80307; 81001; 84484; 85025; 86140; 94640; 96372; 99283; 99285; J2930; J7620-GY

== ENCOUNTER 2021-04-29 21:34 | Emergency (ER) | payer MEDICAID | END 2021-04-30 00:05 | disposition left against medical advice (07) | LOC: DL.ED 21:34 | DX: Z53.21 Procedure and treatment not carried out due to patient leaving prior to being seen by health care provider (principal) ==

== ENCOUNTER 2021-04-30 15:02 | Emergency (ER) | payer MEDICAID ==
[2021-04-30 17:03] VITALS: BP 123/93; PULSE 92
[2021-04-30] MEDS ORDERED: Cephalexin 500 MG Cap PO ONE (18:15)
[2021-04-30] MEDS ORDERED: methylPREDNISolone Sodium Succinate 125 MG/2 ML SDV IM ONE (18:15)
[2021-04-30] MEDS ORDERED: hydrOXYzine HCl 25 MG Tab PO ONE (18:16)
[2021-04-30] MEDS ORDERED: Mupirocin Oint 22 GM Tube TOP ONE (18:16)
--- NOTE | 2021-04-30 18:27 | EDM.PDOC ---
Scribed by Nara Padron 04/30/21 2148 for Tha Dawn MD ED HPI GENERAL MEDICAL PROBLEM - General Chief Complaint: Skin Complaint Stated Complaint: ITCHING, EXCEMA PER PT Time Seen by Provider: 04/30/21 17:45 Source of Information: Reports: Patient, RN, RN Notes Reviewed History Limitations: Reports: No Limitations - History of Present Illness INITIAL COMMENTS - FREE TEXT/NARRATIVE: Patient presents to ED by POV stating that his eczema is getting worse, states itchy,. Patient states lotion sometimes works and sometimes not. States had a steroid shot February or March, states sometimes works and sometimes doesn't, states sometimes the steroid pills work and sometimes doesn't. He does have open areas to the side of the head by the brows, states this is the worse, other sites are not open like this, has to face, ears, chest, neck and trunk. Denies MRSR history. Onset: Gradual Duration: Getting Worse Location: Reports: Generalized Quality: Reports: Other (itchy) Severity: Severe Improves with: Reports: None Worsens with: Reports: None Associated Symptoms: Reports: No Other Symptoms Face/Facial Pain Score (Numeric/FACES): 5 - Related Data Allergies Allergy/AdvReac Type Severity Reaction Status Date / Time No Known Allergies Allergy Verified 04/30/21 16:55 Home Meds: Home Meds . [No Known Home Meds] 04/30/21 [History] Past Medical History - Past Health History Medical/Surgical History: Denies Medical/Surgical History HEENT History: Reports: Impaired Vision, Other (See Below) Other HEENT History: wears glasses Cardiovascular History: Reports: None Respiratory History: Reports: Asthma Gastrointestinal History: Reports: None Genitourinary History: Reports: None Musculoskeletal History: Reports: Back Pain, Chronic Neurological History: Reports: None Psychiatric History: Reports: None Endocrine/Metabolic History: Reports: None Hematologic History: Reports: None Immunologic History: Reports: None Oncologic (Cancer) History: Reports: None Dermatologic History: Reports: Eczema - Infectious Disease History Infectious Disease History: Reports: None - Past Surgical History Head Surgeries/Procedures: Reports: None Social & Family History - Family History Family Medical History: No Pertinent Family History - Tobacco Use Tobacco Use Status *Q: Never Tobacco User Second Hand Smoke Exposure: No - Caffeine Use Caffeine Use: Reports: Soda - Recreational Drug Use Recreational Drug Use: No - Living Situation & Occupation Living situation: Reports: with Family Occupation: Disabled ED ROS GENERAL - Review of Systems Review Of Systems: Comprehensive ROS is negative, except as noted in HPI. ED EXAM, SKIN/RASH Exam: See Below Exam Limited By: No Limitations General Appearance: Alert, WD/WN, No Apparent Distress Ears: Hearing Grossly Normal Nose: Normal Mucosa, No Blood Throat/Mouth: Normal Lips, Normal Voice, No Airway Compromise Head: Atraumatic, Normocephalic Neck: Normal Inspection Respiratory/Chest: No Respiratory Distress, Lungs Clear Cardiovascular: Regular Rate, Rhythm Extremities: Normal Range of Motion, Non-Tender Neurological: Alert, Oriented, No Motor/Sensory Deficits Psychiatric: Normal Mood Skin: Warm, Dry, Rash (Chronic severe eczema with excoriations to face with secondary infection/impetigo) Location, Skin: Head, Face, Chest Characteristics: Patchy Associated features: Warmth, Swelling, Scaling, Inflammation, Crusting, Weeping, Rough Course - Vital Signs Last Recorded V/S: Last Vital Signs Temp 97.7 F 04/30/21 17:00 Pulse 92 04/30/21 17:00 Resp 18 04/30/21 17:00 BP 123/93 H 04/30/21 17:00 Pulse Ox 97 04/30/21 17:00 - Orders/Labs/Meds Meds: Medications Discontinued Medications Generic Name Dose Route Start Last Admin Trade Name Calvinq PRN Reason Stop Dose Admin Cephalexin 500 mg 04/30/21 18:15 Cephalexin 500 Mg Cap PO 04/30/21 18:16 ONETIME ONE Hydroxyzine HCl 25 mg 04/30/21 18:16 Hydroxyzine Hcl 25 Mg Tab PO 04/30/21 18:17 ONETIME ONE Methylprednisolone Sodium Succinate 125 mg 04/30/21 18:15 Methylprednisolone Sodium Succinate 125 Mg/2 Ml Sdv IM 04/30/21 18:16 ONETIME ONE Mupirocin 30 gm 04/30/21 18:16 Mupirocin Oint 22 Gm Tube TOP 04/30/21 18:17 ONETIME ONE Departure - Departure Time of Disposition: 18:24 Disposition: Home, Self-Care 01 Condition: Good Clinical Impression: Impetigo Eczema Qualifiers: Eczema type: unspecified Qualified Code(s): L30.9 - Dermatitis, unspecified - Discharge Information *PRESCRIPTION DRUG MONITORING PROGRAM REVIEWED*: Not Applicable *COPY OF PRESCRIPTION DRUG MONITORING REPORT IN PATIENT CARLEE: Not Applicable Instructions: Eczema, Impetigo, Adult Forms: ED Department Discharge Additional Instructions: Rx: Cephalexin 500mg Rx: Singulair 10mg Rx: Prednisone 20mg Use the Bactroban Ointment 2% to apply to the face and ears three times a day for 5 days. Follow up in clinic in 5 to 7 days. Sepsis Event Note (ED) - Focused Exam Vital Signs: Vital Signs Temp Pulse Resp BP Pulse Ox 04/30/21 17:00 97.7 F 92 18 123/93 H 97 I have read and agree with the documentation that has been completed regarding this visit. By signing this record, I attest that the documentation was completed in my physical presence and is an accurate record of the encounter.
== END 2021-04-30 18:49 | disposition home or self-care (01) ==
LOC: DL.ED 15:02
DX: L01.00 Impetigo, unspecified (principal); L30.9 Dermatitis, unspecified
CPT/HCPCS: 96372; 99282; A9270; J2930

== ENCOUNTER 2025-03-20 00:57 | Emergency (ER) | payer MEDICAID ==
[2025-03-20 06:33] VITALS: BP 122/77; PULSE 61
== END 2025-03-20 06:30 | disposition home or self-care (01) ==
LOC: DL.ED 00:57
DX: R45.851 Suicidal ideations (principal)
CPT/HCPCS: 99284

== ENCOUNTER 2025-06-04 12:53 | Emergency (ER) | payer MEDICAID ==
[2025-06-04 13:20] VITALS: BP 117/88; PULSE 74
== END 2025-06-04 13:16 | disposition home or self-care (01) ==
LOC: DL.ED 12:53
DX: J45.21 Mild intermittent asthma with (acute) exacerbation (principal)
CPT/HCPCS: 94640; 99284; J3535; 99283; A9270-GY

== ENCOUNTER 2025-07-02 19:25 | Emergency (ER) | payer MEDICAID ==
[2025-07-02 19:42] VITALS: BP 127/78; PULSE 85
[2025-07-02 20:13] LABS: BASOPHILS PERCENT AUTO 0.3 % (0.0-1.0); EOSINOPHILS PERCENT AUTO 15.4 % (1.0-3.0); LYMPHOCYTES PERCENT AUTO 17.4 % (20.5-50.1); MONOCYTES PERCENT AUTO 9.4 % (2-8); NEUTROPHILS PERCENT AUTO 57.5 % (42.2-75.2); PLATELET COUNT,PLT 383 10^3/uL (150-450); RED BLOOD CELL COUNT 5.17 10^6/uL (4.6-6.2); WHITE BLOOD CELL COUNT,WBC 7.4 10^3/uL (5.0-10.0)
[2025-07-02 20:29] LABS: AMPHETAMINES,URINE NEGATIVE (NEGATIVE); BARBITURATES,URINE NEGATIVE (NEGATIVE); MDMA (ECSTASY), URINE NEGATIVE (NEGATIVE); METHAMPHETAMINES,URINE NEGATIVE (NEGATIVE); OPIATES,URINE NEGATIVE (NEGATIVE); OXYCODONE,URINE NEGATIVE (NEGATIVE); PHENCYCLIDINE,URINE NEGATIVE (NEGATIVE); TCA,URINE NEGATIVE (NEGATIVE)
[2025-07-02 20:38] LABS: A/G RATIO 0.8; ALANINE AMINOTRANSFERASE,ALT 17 U/L (16-63); ASPARTATE AMNIOTRANSFERASE,AST 15 U/L (15-37); BILIRUBIN TOTAL 0.7 mg/dL (0.2-1.0); BLOOD UREA NITROGEN,BUN 20 mg/dL (7-18); CARBON DIOXIDE,CO2 28 mmol/L (21-32); CHLORIDE,CL 104 mmol/L (98-107); CREATININE 0.61 mg/dL (0.70-1.30); EST CRCL DRUG DOSING (CG) 122.95 mL/min; GLUCOSE RANDOM 113 mg/dL (70-99); POTASSIUM,K 3.7 mmol/L (3.5-5.1); PROTEIN TOTAL,TP 7.9 g/dL (6.4-8.2); SODIUM,NA 141 mmol/L (136-145)
[2025-07-02 20:39] LABS: ESTIMATED GFR 131 mL/min (>=60); ETHANOL BLOOD MEDICAL < 3 mg/dL (0)
== END 2025-07-02 22:57 | disposition home or self-care (01) ==
LOC: DL.ED 19:25
DX: F32.A Depression, unspecified (principal)
CPT/HCPCS: 36415; 80053; 80143; 80179; 80305-QW; 80307; 83735; 84443; 85025; 99284